=== PATIENT | female | born 2005 | race Caucasian/White ===

== ENCOUNTER 2024-01-21 02:09 | Emergency (ER) | payer SELFPAY ==
[~2024-01-21] VITALS: Ht 157.5 cm; Wt 51.5 kg
[2024-01-21 02:11] VITALS: TEMP 98.9
[2024-01-21 02:44] LABS: BASO # 0.1 10^3/uL (0.0-0.2); BASO % 0.6 % (0.0-1.0); EOS # 0.1 10^3/uL (0.0-0.5); EOS % 0.6 % (0.0-3.0); HEMATOCRIT 37.5 % (36.0-47.0); HEMOGLOBIN 12.6 g/dl (12.0-15.5); LYMPH % 8.9 % (24.0-44.0); MEAN CORPUSCULAR HEMOGLOBIN 28.5 pg (27.0-33.0); MEAN CORPUSCULAR HGB CONC 33.6 g/dl (32.0-36.5); MEAN CORPUSCULAR VOLUME 84.8 fl (80.0-96.0); MONO # 1.2 10^3/uL (0.0-0.8); MONO % 5.3 % (2.0-8.0); NEUTROPHILS # 18.4 10^3/uL (1.5-8.5); NEUTROPHILS % 84.1 % (36.0-66.0); PLATELET COUNT, AUTOMATED 509 10^3/uL (150-450); RED BLOOD COUNT 4.42 10^6/uL (4.00-5.40); WHITE BLOOD COUNT 21.9 10^3/uL (4.0-10.0)
[2024-01-21 03:09] LABS: HCG, SERUM QUALITATIVE NEGATIVE (NEGATIVE)
[2024-01-21 03:10] LABS: BLOOD UREA NITROGEN 8 MG/DL (9-23); CALCIUM LEVEL 9.8 MG/DL (8.5-10.1); CARBON DIOXIDE LEVEL 24 MMOL/L (20-31); CHLORIDE LEVEL 104 MMOL/L (98-107); CREATININE FOR GFR 0.72 MG/DL (0.55-1.30); GLOMERULAR FILTRATION RATE > 60.0 (>60); GLUCOSE, FASTING 92 MG/DL (60-100); POTASSIUM SERUM 3.7 MMOL/L (3.5-5.1); SODIUM LEVEL 137 MMOL/L (136-145)
[2024-01-21] MEDS: NS 1,000 ML IV ONE (05:18)
[2024-01-21] MEDS: cefTRIAXone SOD 2 GM in D5W MINI-BAG PLUS 50 ML IV ONE (05:19)
[2024-01-21] MEDS: ONDANSETRON 4MG 2ML VIAL IV ONE (05:19)
[2024-01-21] MEDS: KETOROLAC 30 MG/ML 1ML VIAL IV ONE (05:20)
[2024-01-21 06:00] VITALS: BP 130/84
[2024-01-21] MEDS ORDERED: CEPH500C PO ×2 (06:21→12:04)
[2024-01-21] MEDS ORDERED: KETO10TAB PO ×2 (06:21→12:04)
[2024-01-21] MEDS ORDERED: ONDA-282 PO ×2 (06:21→12:04)
[2024-01-21 06:24] VITALS: O2SAT 99
== END 2024-01-21 06:38 | disposition home or self-care (01) ==
LOC: M ED 02:09
DX: N10 Acute pyelonephritis (principal); F10.10 Alcohol abuse, uncomplicated; Z79.83 Long term (current) use of bisphosphonates; Z79.2 Long term (current) use of antibiotics
CPT/HCPCS: 36415; 80048; 81001; 83605; 84145; 84703; 85025; 87086; 99284; J0696; J1885; J2405